=== PATIENT | male | born 1950 | race Caucasian/White ===

== ENCOUNTER → 2019-01-16 | Outpatient (CLI) | payer MEDICARE | END | disposition home or self-care (01) | LOC: CFH 08:37 | PROVIDERS: ATTEND Internal Medicine Cardiovascular Disease | DX: I35.1 Nonrheumatic aortic (valve) insufficiency (principal); I35.8 Other nonrheumatic aortic valve disorders; I10 Essential (primary) hypertension; E78.5 Hyperlipidemia, unspecified; I25.10 Atherosclerotic heart disease of native coronary artery without angina pectoris | CPT/HCPCS: 93306 ==

== ENCOUNTER → 2021-04-07 | Outpatient (CLI) | payer MEDICARE | END | disposition home or self-care (01) | LOC: CVU 09:48 | PROVIDERS: ATTEND Internal Medicine Cardiovascular Disease | DX: I08.8 Other rheumatic multiple valve diseases (principal); I11.9 Hypertensive heart disease without heart failure; E78.00 Pure hypercholesterolemia, unspecified; I25.10 Atherosclerotic heart disease of native coronary artery without angina pectoris; Z87.891 Personal history of nicotine dependence | CPT/HCPCS: 93306; 93356 ==

== ENCOUNTER 2021-05-07 03:21 | Emergency (ER) | payer MEDICARE ==
[~2021-05-07] VITALS: Ht 167.6 cm; Wt 81.8 kg
[2021-05-07] MEDS ORDERED: ASPIRIN 81 MG TABLET CHEW PO ONE (03:30)
[2021-05-07] MEDS ORDERED: SODIUM CHLORIDE FLUSH 10ML SYR IVF ONE (03:30)
[2021-05-07] MEDS ORDERED: MORPHINE SULFATE 4 MG/ML, 1ML IVPush PRN (03:30)
[2021-05-07] MEDS ORDERED: ONDANSETRON 2MG/ML, 2ML IVPush ONE (03:30)
--- NOTE | 2021-05-07 03:32 | NUR ---
CC OF LEFT ARM PAIN 05/13. PT STATES AROUND 11 PM CHEST PAIN STARTED AND SHARP PAIN RADIATED DOWN LEFT ARM. CP IS INTERMITTENT AND LEFT ARM PAIN IS CONSTANT. PT DENIES N/V/SOB.
[2021-05-07] MEDS ORDERED: ASPIRIN 81 MG TABLET CHEW ONE (03:53)
[2021-05-07 04:12] LABS: BASOPHILS % (AUTO) 1 % (0-1); EOSINOPHILS % (AUTO) 2 % (1-7); LYMPHOCYTES % (AUTO) 24 % (22-44); MEAN CORPUSCULAR HEMOGLOBIN 29.5 pg (27.5-34.5); MEAN CORPUSCULAR HGB CONC 33.9 g/dL (33.2-36.2); MEAN PLATELET VOLUME 7.8 fL (7.4-10.4); MONOCYTES % (AUTO) 11 % (2-9); NEUTROPHILS % (AUTO) 63 % (42-75); PLATELET COUNT 261 x10^3/uL (130-400); RED BLOOD COUNT 4.79 x10^6/uL (4.38-5.82); RED CELL DISTRIBUTION WIDTH 14.5 % (9.4-14.8)
[2021-05-07 04:39] LABS: ALANINE AMINOTRANSFERASE 27 U/L (12-78); ALBUMIN 3.4 g/dL (3.4-5.0); ANION GAP 5 mmol/L (5-15); CALCIUM 8.4 mg/dL (8.5-10.1); CHLORIDE 108 mmol/L (98-107)
[2021-05-07 04:44] LABS: ALKALINE PHOSPHATASE 82 U/L (45-117); BILIRUBIN,TOTAL 0.2 mg/dL (0.2-1.0); CREATININE 0.93 mg/dL (0.7-1.3); TROPONIN I < 0.015 ng/mL (0.000-0.045)
--- NOTE | 2021-05-07 05:43 | NUR ---
DR. WEBER AT BEDSIDE TO DISCUSS POC, DR. WEBER OFFERED ADMISSION TO THE HOSPITAL FOR FURTHER EVALUATION AND MONITORING, PT DECLINED AND WAS ADAMANT THAT HE WOULD RATHER GET DISCHARGED AND GO HOME
[2021-05-07] MEDS ORDERED: HYDROcodone/APAP 5/325 TABLET ONE (05:45)
[2021-05-07 05:55] VITALS: BP 131/78
[2021-05-07] MEDS ORDERED: HYDROcodone/APAP 5/325 TABLET PO ONE (06:00)
== END 2021-05-07 06:00 | disposition home or self-care (01) ==
LOC: ED 03:26
DX: R07.89 Other chest pain (principal)
CPT/HCPCS: 36415; 71045; 80053; 84484; 85025; 93005; 99285

== ENCOUNTER → 2021-05-27 | Outpatient (CLI) | payer MEDICARE ==
[~2021-05-27] MED LIST: REGADENOSON 0.4 MG/5 ML SYRINGE ONE
== END | disposition home or self-care (01) ==
LOC: CFH 11:40
PROVIDERS: ATTEND Internal Medicine Cardiovascular Disease
DX: I25.10 Atherosclerotic heart disease of native coronary artery without angina pectoris (principal); R06.02 Shortness of breath
CPT/HCPCS: 78452; 93017; A9502; J2785